=== PATIENT | female | born 1970 | race Caucasian/White ===

== ENCOUNTER → 2016-08-12 | Day surgery (SDC) | payer OTHER ==
[~2016-08-12] MED LIST: ACETAMINOPHEN 1000 MG/100 ML VIAL IV ONE; BUPIVACAINE/EPINEPHRINE 0.25% 50 ML VIAL ONE; LACTATED RINGER'S 1000 ML INJ 1,000 ML ONE; LIDOCAINE 1%/EPINEPHrine 1:100,000 SOLN 20 ML VIAL ONE; MEPERIDINE HCL 25 MG/ML VIAL ONE; MIDAZOLAM HCL 2 MG/2 ML VIAL ONE; ONDANSETRON HCL 4 MG/2 ML VIAL IV PUSH ONE; PROPOFOL 200 MG/20 ML AMP IV ONE
--- NOTE | 2016-08-12 13:25 | TN ---
cc: MAKENZIE OSWALD M.D. DATE OF SURGERY 08/12/2016 PREOPERATIVE DIAGNOSIS Dermatofibrosarcoma protuberans of left clavicle POSTOPERATIVE DIAGNOSIS Dermatofibrosarcoma protuberans of left clavicle PROCEDURE Wide excision of dermatofibrosarcoma protuberans left clavicle. SURGEON Douglas Oswald MD TOOL MAINTENANCE TECHNICIAN Staff SPECIMENS Left clavicle known dermatofibrosarcoma protuberans, short suture superior, long suture lateral. COMPLICATIONS None INDICATIONS This is a 45-year-old woman who had a longstanding history of a mass overlying the left clavicle. 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 Therefore, she was scheduled for re-excision with wide margins. OPERATIVE FINDINGS The patient underwent re-excision with at least 2 cm margins peripherally and deep margins to the underlying muscle and clavicle and the periosteum of the clavicle. PROCEDURE IN DETAIL The patient was taken to the operating room, placed in a supine position. General endotracheal anesthesia was induced. The left neck and shoulder was prepped and draped in usual sterile fashion. A wide elliptical incision including at least 2 cm margin from the previous scar was performed circumferentially. Sharp dissection was carried out down through the subcutaneous tissue and down to underlying muscle and the periosteum of the clavicle and the rotator cuff muscles. The specimen was elevated off the underlying structures and then removed. It was marked with a short stitch superior, a long stitch lateral. Hemostasis was achieved. The wound bed was irrigated. Due to the size and empty space present, a 10-Kinyarwanda round, full fluted drain was placed through a separate stab incision inferiorly and secured in place with a 4-0 nylon suture. The incision had moderate tension and was therefore closed with multiple simple interrupted deep dermal 0 Vicryl sutures, as well as both simple interrupted and vertical mattress interrupted 2-0 nylon. Sterile dressings were applied. The patient tolerated the procedure well, was extubated and taken to PACU in stable condition. MD PAMELLA Villa/DJElmer /11:59 AM /1:13 PM
== END | disposition home or self-care (01) ==
LOC: ESDC 08:23
PROVIDERS: ATTEND Surgery
DX: C44.599 Other specified malignant neoplasm of skin of other part of trunk (principal)
CPT/HCPCS: 00400; 11606; 88307; J0131; J2175; J2250; J2405; J3010; J7120; 88305; 88309; 88311